=== PATIENT | female | born 1955 | race Caucasian/White ===

== ENCOUNTER 2020-12-09 14:54 | Emergency (ER) | payer MEDICARE ==
[2020-12-09 15:10] VITALS: O2SAT 98
[2020-12-09] MEDS ORDERED: TORAdol 30 mg Injection IM ONE (15:23)
[2020-12-09] MEDS ORDERED: Norflex 60 MG/2 ML IM ONE (15:23)
--- NOTE | 2020-12-09 15:23 | ERPHSYRPT ---
- History of Present Illness Time Seen by Provider: 12/09/20 15:20 Source: patient Exam Limitations: no limitations Patient Subjective Stated Complaint: PT states "I have had back spasms for the past two days and it is getting worse." Triage Nursing Assessment: Pt presented alert and oriented X 3, skin pwd Pt ambulates with an upright steady gait, able to speak in clear full sentences pt in no apparent respiratory distress. Physician History: PT states "I have had back spasms for the past two days and it is getting worse." denies any other symptoms including Burning urination frequency of urination nausea vomiting diarrhea abdominal pain chest pain shortness of breath patient Timing/Duration: yesterday Severity: moderate Associated Symptoms: denies symptoms Allergies/Adverse Reactions: isosorbide Allergy (Intermediate, Verified 12/09/20 15:10) headache/sweating niacin Allergy (Intermediate, Verified 12/09/20 15:10) headache/sweating Home Medications: B Complex with Vitamin C [Super B-Complex & C] 1 each PO DAILY 12/09/20 [History] Desvenlafaxine [Desvenlafaxine ER] 50 mg PO DAILY 12/09/20 [History] Hydralazine HCl 50 mg PO DAILY 12/09/20 [History] Hydroxyzine HCl 25 mg PO HS 12/09/20 [History] Levothyroxine Sodium [Levothyroxine] 50 mcg PO DAILY 12/09/20 [History] Losartan Potassium [Cozaar] 100 mg PO DAILY 12/09/20 [History] Nitroglycerin 0.4 mg Tablet [Nitrostat 0.4 MG Tablet] 0.4 mg SL DAILY PRN 12/09/20 [History] Hx Tetanus, Diphtheria Vaccination/Date Given: Yes Hx Influenza Vaccination/Date Given: No Hx Pneumococcal Vaccination/Date Given: No Immunizations Up to Date: Yes Travel Risk - International Travel Have you traveled outside of the country in past 3 weeks: No - Coronavirus Screening Are you exhibiting any of the following symptoms?: No Close contact with a COVID-19 positive Pt in past 14-21 Days: No - Vaccine Status Have you recieved a Covid-19 vaccination: No - Review of Systems Constitutional: No Fever, No Chills Eyes: No Symptoms Ears, Nose, & Throat: No Symptoms Respiratory: No Cough, No Dyspnea Cardiac: No Chest Pain, No Edema, No Syncope Abdominal/Gastrointestinal: No Abdominal Pain, No Nausea, No Vomiting, No Diarrhea Genitourinary Symptoms: No Dysuria Musculoskeletal: Other (muscle spasm in upper back more on left), No Back Pain, No Neck Pain Skin: No Rash Neurological: No Dizziness, No Focal Weakness, No Sensory Changes Psychological: No Symptoms Endocrine: No Symptoms All Other Systems: Reviewed and Negative - Past Medical History Pertinent Past Medical History: Yes Cardiac History: Congenital Heart Disease, Hypertension Endocrine Medical History: Hypothyroidism Musculoskeletal History: Fibromyalgia Psycho-Social History: Depression - Past Surgical History Past Surgical History: Yes Other Surgical History: 2 x c section. bilat knee. cosme - Social History Smoking Status: Never smoker Exposure to second hand smoke: Yes Drug Use: none Patient Lives Alone: No - Nursing Vital Signs Nursing Vital Signs: Initial Vital Signs Temperature 97.7 F 12/09/20 15:04 Pulse Rate 77 12/09/20 15:04 Respiratory Rate 24 12/09/20 15:04 Blood Pressure 174/95 12/09/20 15:04 O2 Sat by Pulse Oximetry 98 12/09/20 15:04 Pain Scale Pain Intensity [Left Back] 9 Pain Intensity 7 - Physical Exam General Appearance: no apparent distress, alert Eye Exam: PERRL/EOMI, eyes nml inspection Ears, Nose, Throat Exam: normal ENT inspection, TMs normal, pharynx normal, moist mucous membranes Neck Exam: normal inspection, non-tender, supple, full range of motion Respiratory Exam: normal breath sounds, lungs clear, No respiratory distress Cardiovascular Exam: regular rate/rhythm, normal heart sounds, normal peripheral pulses Gastrointestinal/Abdomen Exam: soft, normal bowel sounds, No tenderness, No mass Back Exam: normal inspection, normal range of motion, muscle spasm (thoracic area, left more then right), No CVA tenderness, No vertebral tenderness Extremity Exam: normal inspection, normal range of motion, pelvis stable Neurologic Exam: alert, oriented x 3, cooperative, normal mood/affect, nml station & gait, sensation nml, No motor deficits Skin Exam: normal color, warm, dry, No rash Lymphatic Exam: No adenopathy SpO2: 98 - Course Nursing assessment & vital signs reviewed: Yes Ordered Tests: Medication Summary Discontinued Medications Generic Name Dose Route Start Last Admin Trade Name Freq PRN Reason Stop Dose Admin Ketorolac Tromethamine 60 mg 12/09/20 15:23 12/09/20 15:32 Toradol 30 Mg Injection IM 12/09/20 15:24 60 mg STAT ONE Administration Ketorolac Tromethamine Confirm 12/09/20 15:30 Toradol 30 Mg Injection Administered 12/09/20 15:31 Dose 60 mg .ROUTE .STK-MED ONE Orphenadrine Citrate 60 mg 12/09/20 15:23 12/09/20 15:33 Norflex 60 Mg/2 Ml IM 12/09/20 15:24 60 mg STAT ONE Administration Orphenadrine Citrate Confirm 12/09/20 15:30 Norflex 60 Mg/2 Ml Administered 12/09/20 15:31 Dose 60 mg .ROUTE .STK-MED ONE - Progress Progress: improved, pain not gone completely Counseled pt/family regarding: diagnosis, need for follow-up - Departure Departure Disposition: Home Clinical Impression: Spasm of thoracic back muscle Condition: Stable Critical Care Time: No Referrals: DOCTOR,NO FAMILY [Primary Care Provider] - Follow Up with PCP/3 days Instructions: Muscle Spasms (DC), Upper Back Pain (DC), Back Muscle Strain Additional Instructions: Discharge/Care Plan BLANKA MONTES was seen on 12/09/20 in the Emergency Room. The patient was counseled regarding Diagnosis,Lab results, Imaging studies, need for follow up and when to return to the Emergency Room. Prescriptions given: Discharge Note I have spoken with the patient and/or caregivers. I have explained the patient's condition, diagnosis and treatment plan based on the information available to me at this time. I have answered the patient's and/or caregiver's questions and addressed any concerns. The patient and/or caregivers have as good understanding of the patient's diagnosis, condition and treatment plan as can be expected at this point. The vital signs have been stable. The patient's condition is stable and appropriate for discharge from the emergency department. The patient will pursue further outpatient evaluation with the primary care physician or other designated or consulting physician as outlined in the discharge instructions. The patient and/or caregivers are agreeable to this plan of care and follow-up instructions have been explained in detail. The patient and/or caregivers have received these instruction. The patient/and or caregivers are aware that any significant change in condition or worsening of symptoms should prompt an immediate return to this or the closest emergency department or call 911. USE VOLTAREN GEL WHICH IS AVAILABLE OVER THE COUNTER , APPLY EVERY 4 HOURS ON AFFECTED BACK SPASM AREA Prescriptions: Cyclobenzaprine HCl 10 mg [Flexeril 10 MG] 10 mg PO TID #30 tablet
[2020-12-09] MEDS ORDERED: Norflex 60 MG/2 ML ONE (15:30)
[2020-12-09] MEDS ORDERED: TORAdol 30 mg Injection ONE (15:30)
[2020-12-09] MEDS ORDERED: Zofran 4 MG/2 ML VIAL ONE (15:55)
[2020-12-09] MEDS ORDERED: Zofran 4 MG/2 ML VIAL IM ONE (15:57)
[2020-12-09 16:21] VITALS: BP 160/98; PULSE 61
== END 2020-12-09 16:45 | disposition home or self-care (01) ==
LOC: ED 14:54
DX: M62.830 Muscle spasm of back (principal); I10 Essential (primary) hypertension; E03.9 Hypothyroidism, unspecified
CPT/HCPCS: 96372; 99284; J1885; J2360; J2405